=== PATIENT | male | born 1950 | race Caucasian/White ===

== ENCOUNTER 2016-08-11 21:24 | Emergency (ER) | payer OTHER ==
[~2016-08-11] VITALS: Ht 172.7 cm; Wt 138.2 kg
[~2016-08-11 21:24] MED LIST: DOXY100T2 PO; FUR20 PO; GLIP10TA10 PO; HYDR-4003 PO; LISI10TA2 PO; PIOG30TA26 PO; PRV40T PO; SENN8.6C6 PO; TRAM50TA2 PO
[2016-08-11 21:48] VITALS: BP 163/83; PULSE 83; RESP 18; O2SAT 93
--- NOTE | 2016-08-11 22:06 | ED.REPORT ---
HPI-General Illness Date of Service Aug 11, 2016 ED Provider: Dr. Davison Pt is a 66 year old male with a history of DM who was sent to the ED by the [facility] with concerns for elevated potassium. Pt reports that he has a history of elevated potassium, and routinely receives labs. He informed that he should come to the ED for this concern. He reports that he has been prescribed Lasix for chronic lower extremity edema, but has not been taking it for the past couple of weeks. Pt reports intermittent constipation and diarrhea, especially over the last couple of days, but denies any fevers, chills, cough, or any other symptoms. Nursing Notes Stated Complaint: HIGH POTASSIUM Chief Complaint: General Complaint Nursing Notes Reviewed: Yes Allergies: Coded Allergies: aspirin (Unverified Adverse Reaction, Severe, Rash, 08/11/16) lidocaine (Unverified Adverse Reaction, Severe, Restlessness, 08/11/16) Scheduled Doxycycline Hyclate (Doxycycline Hyclate) 100 Mg Tablet 100 MG PO BID Glipizide (Glipizide) 10 Mg Tablet 10 MG PO BID Lisinopril (Lisinopril) 10 Mg Tablet 10 MG PO DAILY Pioglitazone (Pioglitazone) 30 Mg Tablet 30 MG PO DAILY Pravastatin (Pravachol) 40 Mg Tab 40 MG PO HS Scheduled PRN Furosemide (Furosemide) 20 Mg Tab 20 MG PO PRN PRN PRN edema Hydrocodone-Acetaminophen 5-325 mg (Hydrocodone-Acetaminophen 5-325 mg) 1 Each Tablet 1 EACH PO Q4 PRN PRN For Pain Sennosides (Senna) 8.6 Mg Capsule 17.2 MG PO DAILY PRN PRN For Constipation Tramadol (Tramadol) 50 Mg Tablet 50 MG PO Q6 PRN PRN For Pain General Time Seen by MD: 22:06 Chief Complaint Other (Elevated Potassium) Hx Obtained From: Patient Arrived By: Walk-in Sudden in Onset?: Yes Severity: Current: No pain currently Severity: Maximum: No pain Similar Sx Previous: Yes Past Medical History Past Medical History venous insufficiency chronic kidney disease chronic venous stasis morbid obesity Hx of prostate cancer s/p radiation Reports: Diabetes mellitus, Hyperlipidemia, Hypertension Past Surgical History none reported Smoking History Light Tobacco Smoker Social History Alcohol Use: Denies alcohol use Drug Use: Denies drug use Ambulatory Status Independent Review of Systems Full Review of Systems Constitutional: Denies: Chills, Fever, Malaise, Weakness - generalized Respiratory: Denies: Non-productive cough, Shortness of breath, Wheezing Cardiovascular: Denies: Syncope GI: Reports: Constipation, Diarrhea, Denies: Abdominal pain, Nausea, Vomiting Male: Denies Dysuria, Denies Flank pain, Denies Urinary frequency, Denies Urinary urgency Musculoskeletal: Denies: Back pain, Extremity pain, Neck pain Skin: Denies Diaphoresis Neurologic: Denies: Abnormal movement, Change LOC, Dizziness, Headache, Syncope , Weakness Complete sys rev & neg: except as marked. Physical Exam Vital Signs Vital Signs Date Time Temp Pulse Resp B/P Pulse Ox O2 Delivery O2 Flow Rate FiO2 08/11/16 21:48 36.8 83 18 163/83 93 Room Air Initial VS: Reviewed General/Constitutional: Well-developed, Well-nourished Head / Eyes: Atraumatic, Normocephalic, PERRL ENT: Mucous membranes moist, Conjunctiva normal, No scleral icterus Neck: Supple, Non-tender, Full range of motion Respiratory: Breath sounds normal, Clear to auscultation, No respiratory distress Abdomen / GI: Soft, Non-tender, No guarding, No rebound, No distention Skin: Warm, Dry, No cyanosis Neurologic: Alert, Oriented, Nonfocal Psychiatric: Mood/affect normal, Behavior normal, Normal thought content Cardiovascular: Heart rate NL, Regular rhythm, Heart sounds NL, No gallop, No murmurs, No rubs Erythematous bilateral lower extremities up to his mid-gant 2x2cm blister about the left heel Interpretation & Diagnostics Lab Results Interpretation Result Diagram: 08/11/16221908/11/16 222 Test 08/11/16 22:20 White Blood Count 12.1th/mm3 (3.8-10.1) Red Blood Count 5.73mil/mm3 (4.40-5.80) Hemoglobin 17.0g/dL (13.8-17.2) Hematocrit 51.1% (41.0-50.0) Mean Corpuscular Volume 89.2fL (81-100) Mean Corpuscular Hemoglobin 29.7pg (27.0-35.0) Mean Corpuscular Hemoglobin Concent 33.3% (32.0-37.0) Red Cell Distribution Width 13.1% (12.3-15.4) Platelet Count 309bil/L (150-400) Neutrophils (%) (Auto) 68.1% (40-74) Lymphocytes (%) (Auto) 21.2% (14-46) Monocytes (%) (Auto) 7.3% (4-12) Eosinophils (%) (Auto) 2.6% (0-5) Basophils (%) (Auto) 0.2% (0-3) Sodium Level 138mEq/L (134-144) Potassium Level 4.4mEq/L (3.5-5.2) Chloride Level 97mEq/L (97-108) Carbon Dioxide Level 28mmol/L (18-29) Blood Urea Nitrogen 25mg/dL (8-27) Creatinine 1.31mg/dL (0.76-1.27) Estimat Glomerular Filtration Rate 58mL/min (>59) Glucose Level 213mg/dL (60-99) Calcium Level 9.3mg/dL (8.5-10.1) Magnesium Level 1.6mg/dL (1.6-2.6) Total Bilirubin 0.2mg/dL (0.0-1.2) Aspartate Amino Transf (AST/SGOT) 19U/L (0-50) Alanine Aminotransferase (ALT/SGPT) 22U/L (0-44) Alkaline Phosphatase 73U/L (25-160) Troponin T 0.010ug/L (0.0-0.011) Total Protein 7.7g/dL (6.4-8.4) Albumin 3.9g/dL (3.4-5.0) ECG Interpretation ECG Interpretation: SR - [address] elevation Time: 22:13 Interpreted by: ED physician Re-Eval/Medical Decision Med Decision/Clinical Course 66-year-old male history of diabetes and chronic lower extremity edema presenting sent in by primary doctor for elevated potassium of 6.8 on lab draw earlier today. Repeat potassium here was 4.4. Previous potassium likely lab error. EKG unremarkable. Patient is stable for discharge home with follow-up with primary doctor later this week. Source of Hx: Old records Time of Eval: 23:19 Re-Evaluation/Progress Note: Pt is rechecked and informed of his diagnosis and the plan to discharge him at this time. He understands and agrees all questions are addressed. Counseled Regarding: Diagnosis, Lab results, When/why to return to ED Discharge & Departure Primary Impression: History of hyperkalemia Disposition: Home Discharge Condition All VS Reviewed: Yes Condition: Stable Additional Instructions: Your potassium was normal today, your previous value appeared to be a lab error. Follow up with your primary care provider in the next couple of days. Return to the emergency department if you experience any concerning symptoms. [facility] ([facility] Scribe Attestation Portions of this note were transcribed by Shonda Bates. I, Dr. Davison personally performed the history, physical exam and medical decision-making; I reviewed and confirmed the accuracy of the information in the transcribed note. Signed by: Brit Jeronimo, 08/11/2016 [Time]. copies to: [facility] Juwan Davison MD Aug 11, 2016 22:05 SANCHEZ BATES Aug 11, 2016 22:20
[2016-08-11 22:33] LABS: BASOPHILS % (AUTO) 0.2 % (0-3); EOSINOPHILS % (AUTO) 2.6 % (0-5); MONOCYTES % (AUTO) 7.3 % (4-12); Mean Corpuscular Hemoglobin 29.7 pg (27.0-35.0); Mean Corpuscular Volume 89.2 fL (81-100); NEUTROPHILS % (AUTO) 68.1 % (40-74); Platelet Count 309 bil/L (150-400)
[2016-08-11 22:55] LABS: TROPONIN T 0.01 ug/L (0.0-0.011)
[2016-08-11 23:06] LABS: Magnesium 1.6 mg/dL (1.6-2.6)
[2016-08-11 23:32] VITALS: BP 142/63; PULSE 79; O2SAT 92
[2016-08-11 23:40] VITALS: BP 142/63; PULSE 79; O2SAT 92
== END 2016-08-11 23:41 | disposition home or self-care (01) ==
LOC: SED 21:24
DX: E87.5 Hyperkalemia (principal); E11.22 Type 2 diabetes mellitus with diabetic chronic kidney disease; N18.9 Chronic kidney disease, unspecified; I13.0 Hypertensive heart and chronic kidney disease with heart failure and stage 1 through stage 4 chronic kidney disease, or unspecified chronic kidney disease; E78.5 Hyperlipidemia, unspecified; Z85.46 Personal history of malignant neoplasm of prostate; F17.200 Nicotine dependence, unspecified, uncomplicated; Z88.8 Allergy status to other drugs, medicaments and biological substances